=== PATIENT | female | born 1980 | race American Indian/Alaskan Native ===

== ENCOUNTER 2016-11-26 11:43 | Emergency (ER) | payer BC ==
[2016-11-26 12:53] LABS: Bilirubin,Urine NEG (Negative); Blood,Urine LG (Negative); Ketones,Urine NEG (Negative); Leukocyte Esterase,Urine NEG (Negative); Nitrite,Urine NEG (Negative); Protein,Urine <15 mg/dL mg/dL (Negative); RBC,Urine < 1.0 /HPF (0.0-6.0); Urobilinogen,Urine < 2.0 mg/dL (<2.0)
[2016-11-26 13:02] LABS: WBC,Urine < 1.0 /HPF (0.0-6.0)
[2016-11-26 14:26] LABS: Basophils % (Auto) 0.4 % (0.0-1.8); Eosinophils % (Auto) 0.5 % (0.0-4.3); Hematocrit 42.6 % (30.3-42.9); Mean Corpuscular HGB Conc 33 % (30-34); Mean Corpuscular Hemoglobin 29 pg (28-32); Mean Corpuscular Volume 89 fl (79-97); Platelet Count 269 K/mm3 (140-440); Red Blood Count 4.81 M/mm3 (3.65-5.03); White Blood Count 10.2 K/mm3 (4.5-11.0)
--- NOTE | 2016-11-26 16:27 | Emergency Department Report ---
HPI - General Chief Complaint: Vaginal Bleeding Time Seen by Provider: 11/26/16 16:16 - HPI HPI: Room 7 The patient is a 35-year-old female presenting with a chief complaint of vaginal bleeding. The patient states she had a positive home tests 3 days ago. The patient states past 3 days she's had vaginal spotting. The patient states the bleeding has increased today to require panning liner. The patient states she is nontender approximately 6 panty liners today. Patient does complain of aching abdominal pain left greater than right which began today. The patient states she has not seen an GUEST SERVICE HOST for this Location: Pelvis Duration: 3 days Quality: Aching Severity: Moderate Modifying factors: [see above] Context: [see above] Mode of transportation: Unknown ED Past Medical Hx - Past Medical History Previous Medical History?: Yes Additional medical history: Herniated disc 2 age 16 - Surgical History Past Surgical History?: Yes Additional Surgical History: Back surgery @ age 16 - Family History Family history: no significant - Social History Smoking Status: Never Smoker Substance Use Type: None ED Review of Systems ROS: Stated complaint: POSITIVE TEST,HEAVY BLEEDING Other details as noted in HPI Comment: All other systems reviewed and negative Constitutional: denies: chills, fever Eyes: denies: eye pain, eye discharge, vision change ENT: denies: ear pain, throat pain Respiratory: denies: cough, shortness of breath, wheezing Cardiovascular: denies: chest pain, palpitations Endocrine: no symptoms reported Gastrointestinal: abdominal pain Genitourinary: abnormal menses Musculoskeletal: denies: back pain, joint swelling, arthralgia Skin: denies: rash, lesions Neurological: denies: headache, weakness, paresthesias Psychiatric: denies: anxiety, depression Hematological/Lymphatic: denies: easy bleeding, easy bruising Physical Exam - Physical Exam Vital Signs: Vital Signs 11/26/16 12:10 Temperature 98.5 F Pulse Rate 84 Respiratory 16 Rate Blood Pressure 136/83 O2 Sat by Pulse 99 Oximetry Physical Exam: GENERAL: The patient is well-developed well-nourished female lying on stretcher not appearing to be in acute distress. [] HEENT: Normocephalic. Atraumatic. Extraocular motions are intact. Patient has moist mucous membranes. NECK: Supple. Trachea midline CHEST/LUNGS: Clear to auscultation. There is no respiratory distress noted. HEART/CARDIOVASCULAR: Regular. There is no tachycardia. There is no gallop rub or murmur. ABDOMEN: Abdomen is soft, nontender. Patient has normal bowel sounds. There is no abdominal distention. SKIN: There is no rash. There is no edema. There is no diaphoresis. NEURO: The patient is awake, alert, and oriented. The patient is cooperative. The patient has normal speech MUSCULOSKELETAL: There is no evidence of acute injury. ED Course Vital Signs 11/26/16 12:10 Temperature 98.5 F Pulse Rate 84 Respiratory 16 Rate Blood Pressure 136/83 O2 Sat by Pulse 99 Oximetry ED Medical Decision Making - Lab Data Result diagrams: 11/26/16 13:50 Laboratory Tests 11/26/16 11/26/16 11/26/16 12:27 13:50 13:50 WBC 10.2 RBC 4.81 Hgb 14.0 Hct 42.6 MCV 89 MCH 29 MCHC 33 RDW 13.0 L Plt Count 269 Lymph % (Auto) 14.1 [place] % (Auto) 3.9 Eos % (Auto) 0.5 Baso % (Auto) 0.4 Lymph # 1.4 [place] # 0.4 Eos # 0.1 Baso # 0.0 Seg Neutrophils % 81.1 H Seg Neutrophils # 8.3 H HCG, Quant 21.41 H Urine Color Red Urine Turbidity Clear Urine pH 6.0 Ur Specific [place] 1.001 L Urine Protein <15 mg/dl Urine Glucose (UA) Neg Urine Ketones Neg Urine Blood Lg Urine Nitrite Neg Urine Bilirubin Neg Urine Urobilinogen < 2.0 Ur Leukocyte Esterase Neg Urine WBC (Auto) < 1.0 Urine RBC (Auto) < 1.0 Blood Type Antibody Screen 11/26/16 13:52 WBC RBC Hgb Hct MCV MCH MCHC RDW Plt Count Lymph % (Auto) [place] % (Auto) Eos % (Auto) Baso % (Auto) Lymph # [place] # Eos # Baso # Seg Neutrophils % Seg Neutrophils # HCG, Quant Urine Color Urine Turbidity Urine pH Ur Specific [place] Urine Protein Urine Glucose (UA) Urine Ketones Urine Blood Urine Nitrite Urine Bilirubin Urine Urobilinogen Ur Leukocyte Esterase Urine WBC (Auto) Urine RBC (Auto) Blood Type O POSITIVE Antibody Screen Negative - Radiology Data Radiology results: report reviewed (pelvic ultrasound), image reviewed (pelvic ultrasound) Pelvic ultrasound (read by radiologist)-no ultrasound evidence of intrauterine or extrauterine . 2 small uterine lesion suggestive of fibroids. - Differential Diagnosis threatened , ectopic , spontaneous , incomplete ab Critical care attestation.: If time is entered above; I have spent that time in minutes in the direct care of this critically ill patient, excluding procedure time. ED Disposition Clinical Impression: Threatened Disposition: DC- TO HOME OR SELFCARE Is pt being admited?: No Does the pt Need Aspirin: No Condition: Stable Instructions: Ectopic (ED), Threatened Miscarriage (ED) Additional Instructions: Your serum hCG level today was 21.41 mIU/mL. It is important that you follow up with your GUEST SERVICE HOST or return to the emergency department in 48 hours to have this number rechecked. Return to the emergency department immediately should you develop worsening symptoms, fever, inability to tolerate food or liquid or any other concerns. Referrals: YAMILE RICH MD [Primary Care Provider] - 3-5 Days LUIS RODGERS MD [Staff Physician] - [facility] (Dr. Rodgers is an GUEST SERVICE HOST. It is important that you follow-up with him, your own GUEST SERVICE HOST or the emergency department in 48 hours for reevaluation) Time of Disposition: 18:11
[2016-11-26 18:02] VITALS: BP 116/74
--- NOTE | 2016-11-26 18:04 | Ultrasound Report ---
FINAL REPORT EXAM: US OB \T\lt; = 14 WEEKS FETUS HISTORY: vag bleed TECHNIQUE: Pelvis ultrasound using 2 different techniques: TRANSABDOMINAL and TRANSVAGINAL PRIORS: Endovaginal pelvic ultrasound 11/26/2016 FINDINGS: The uterus measures 7.0 x 3.9 x 6.4 cm. Normal endometrium with 6.6 mm thickness. Two nonspecific anterior heterogeneously hyperechoic nodules are noted in the uterus, measuring 2.7 cm and 2.3 cm, respectively. These are most compatible with fibroids. No evidence of gestational sac in the endometrium or adnexum. No evidence of pelvic free fluid. Normal-appearing bilateral ovaries with the right measuring 2.7 x 1.5 x 2.7 cm and left measuring 2.4 x 1.3 x 2.9 cm. Ovarian blood flow present bilaterally. Nonspecific 1.9 mm echogenic focus in right ovary may be a calcification. IMPRESSION: No ultrasound evidence of intrauterine or extrauterine Two small uterine lesions suggestive of fibroids
--- NOTE | 2016-11-26 18:09 | Ultrasound Report ---
FINAL REPORT EXAM: US OB TRANSVAGINAL HISTORY: vag bleed TECHNIQUE: Pelvis ultrasound using 2 different techniques: TRANSABDOMINAL and TRANSVAGINAL PRIORS: Transabdominal pelvic ultrasound 11/26/2016 FINDINGS: The uterus measures 7.0 x 3.9 x 6.4 cm. Normal endometrium with 6.6 mm thickness. Two nonspecific anterior heterogeneously hyperechoic nodules are noted in the uterus, measuring 2.7 cm and 2.3 cm, respectively. These are most compatible with fibroids. No evidence of gestational sac in the endometrium or adnexum. No evidence of pelvic free fluid. Normal-appearing bilateral ovaries with the right measuring 2.7 x 1.5 x 2.7 cm and left measuring 2.4 x 1.3 x 2.9 cm. Ovarian blood flow present bilaterally. Nonspecific 1.9 mm echogenic focus in right ovary may be a calcification. IMPRESSION: No ultrasound evidence of intrauterine or extrauterine Two small uterine lesions suggestive of fibroids
== END 2016-11-26 18:28 | disposition home or self-care (01) ==
LOC: ED 11:43
DX: O20.0 Threatened abortion (principal); Z3A.00 Weeks of gestation of pregnancy not specified
CPT/HCPCS: 36415; 76801; 76817; 81001; 84702; 85025; 86850; 86900; 86901